=== PATIENT | male | born 1975 | race Caucasian/White ===

== ENCOUNTER 2017-10-29 03:50 | Emergency (ER) | payer BC ==
[~2017-10-29] VITALS: Ht 185.4 cm; Wt 79.4 kg
[~2017-10-29 03:50] MED LIST: LITH300C PO; MTF500T PO; NAPR-243 PO; TRM50T PO
[2017-10-29 04:19] LABS: BILIRUBIN,URINE NEGATIVE (NEGATIVE); CLARITY,URINE CLEAR; COLOR,URINE YELLOW; GLUCOSE, URINE (UA) NEGATIVE (NEGATIVE); KETONES,URINE NEGATIVE (NEGATIVE); LEUKOCYTE ESTERASE ,URINE 3+ (NEGATIVE); NITRITE,URINE NEGATIVE (NEGATIVE); PH,URINE 6 (5-9); PROTEIN,URINE 1+ (NEGATIVE); UROBILINOGEN,URINE NORMAL (NORMAL)
[2017-10-29 04:26] LABS: BACTERIA,URINE TRACE /HPF; SQUAMOUS EPITHELIAL CELL,UR RARE /HPF
--- NOTE | 2017-10-29 04:31 | ED GU-Male ---
General Stated Complaint: URINATION ISSUES Source: patient, other (gf) Exam Limitations: no limitations History of Present Illness Date Seen by Provider: October 29, 2017 Time Seen by Provider: 04:22 Initial Comments For the past 2 or 3 days the patient's having progressively more difficulty trying to urinate he says he takes 45 minutes to come feel like he completely empties his bladder. Puts up to the pencil thin stream. He says this started off and on for the past year and a half when he passed a kidney stone and he felt that there were some tearing and his urethra and it got caught in the penis. He was able to pass it despite following up with urology without any kind of intervention. He went to see nurse practitioner 2 days ago and was told he had a urinary tract infection and put on Levaquin and Flomax. He doesn't feel that this is helped at all. He has not followed up with urologist in the intervening year and a half. He is having no fevers chills nausea vomiting. He is not taking anything for pain and does not need anything right now. Allergies and Home Medications Allergies Coded Allergies: lisinopril (Verified Adverse Reaction, Mild, COUGH, 09/22/12) rosuvastatin calcium (Verified Adverse Reaction, Mild, LEG CRAMPS, 09/22/12 ) Home Medications Faxon Carbonate 300 Mg Capsule, 300 MG PO TID, (Reported) Metformin Hcl 500 Mg Tablet, 1 EACH PO BID WITH MEALS, (Reported) Naproxen 500 Mg Tablet, 1 EACH PO BID, (Reported) Tramadol Hcl 50 Mg Tab, 50 MG PO Q4H, (Reported) Patient Home Medication List Home Medication List Reviewed: Yes Review of Systems Constitutional: No chills, No diaphoresis, No fever Respiratory: No cough, No short of breath Cardiovascular: No chest pain, No edema Gastrointestinal: No abdominal pain, No constipation, No diarrhea, No nausea, No vomiting Genitourinary: denies discharge, denies dysuria Musculoskeletal: No back pain, No joint pain Skin: No pruritus, No rash Past Pmdtrim-Qclust-Muhxta Hx Patient Social History Alcohol Use: Denies Use Recreational Drug Use: No Smoking Status: Never a Smoker Recent Foreign Travel: No Contact w/Someone Who Travel: No Immunizations Up To Date Tetanus Booster (TDap): Less than 5yrs Past Medical History Reproductive Disorders: No Diabetes, Non-Insulin dep Bipolar Adverse Reaction/Blood Tranf: No Physical Exam Vital Signs Capillary Refill : General Appearance: WD/WN, no apparent distress HEENT: PERRL/EOMI, pharynx normal Neck: non-tender, full range of motion Cardiovascular: normal peripheral pulses, regular rate, rhythm Respiratory: chest non-tender, lungs clear, normal breath sounds, no respiratory distress, no accessory muscle use Gastrointestinal: normal bowel sounds, non tender, soft Back: normal inspection, no CVA tenderness Extremities: non-tender, normal capillary refill Neurologic/Psychiatric: alert, normal mood/affect, oriented x 3 Skin: normal color, warm/dry Progress/Results/Core Measures Suspected Sepsis SIRS Temperature: Pulse: Respiratory Rate: Blood Pressure / Mean: Results/Orders Lab Results Laboratory Tests Test 10/29/17 04:00 Range/Units Urine Color YELLOW Urine Clarity CLEAR Urine pH 6 5-9 Urine Specific [place] 1.020 1.016-1.022 Urine Protein 1+ H NEGATIVE Urine Glucose (UA) NEGATIVE NEGATIVE Urine Ketones NEGATIVE NEGATIVE Urine Nitrite NEGATIVE NEGATIVE Urine Bilirubin NEGATIVE NEGATIVE Urine Urobilinogen NORMAL NORMAL MG/DL Urine Leukocyte Esterase 3+ H NEGATIVE Urine RBC (Auto) NEGATIVE NEGATIVE Urine RBC NONE /HPF Urine WBC 5-10 H /HPF Urine Squamous Epithelial Cells RARE /HPF Urine Crystals NONE /LPF Urine Bacteria TRACE /HPF Urine Casts NONE /LPF Urine Mucus NEGATIVE /LPF Urine Culture Indicated YES My Orders Orders - HARVEY SMITH Ua Culture If Indicated (10/29/17 04:02) Urine Culture (10/29/17 04:00) Post Void Residual Assessment (10/29/17 04:27) Vital Signs/I&O Capillary Refill : Progress Note : Time: 05:01 Progress Note Postvoid residual shows about 60 cc. He was able put a little bit of urine out for a sample that has a few white blood cells may indicate UTI that he is being treated for versus urethritis. He does seem to have a urinary stricture based on his history. We'll need to do any kind of catheter at this time to relieve pressure. We'll get him a referral to urology. He has no constitutional, systemic symptoms. Continue the Flomax, Levaquin and follow up with urology. Departure Impression Primary Impression: Urethral stricture Qualified Codes: N35.9 - Urethral stricture, unspecified Additional Impression: Urethritis Disposition: 01 HOME, SELF-CARE Condition: Stable Departure-Patient Inst. Decision time for Depature: 05:03 Referrals: IVÁN SHAFFER DO (PCP/Family) Primary Care Physician JAYNA ELIZALDE MD Patient Instructions: Urethritis (DC) Add. Discharge Instructions: I encourage you to continue the antibiotic and Flomax. If you're unable to urinate completely can return to the ER for reevaluation. Otherwise you need to follow-up with urology. You can talk to Dr. Elizalde by calling his office at [phone] or if you prefer you can follow-up with Dr. Arreaga at [place], [place] by calling his office for an appointment at [phone]. Copy Copies To 1: JAYNA ELIZALDE MD, TITUS J October 29, 2017 04:31
[2017-10-29 05:31] VITALS: BP 125/85
== END 2017-10-29 05:31 | disposition home or self-care (01) ==
LOC: EDUNIT# 03:50 → ER 03:53
DX: N35.9 Urethral stricture, unspecified (principal); N34.2 Other urethritis; E11.9 Type 2 diabetes mellitus without complications; F31.9 Bipolar disorder, unspecified; Z88.8 Allergy status to other drugs, medicaments and biological substances; Z79.84 Long term (current) use of oral hypoglycemic drugs
CPT/HCPCS: 81000; 87088; 99283

== ENCOUNTER 2017-12-25 05:40 | Outpatient (CLI) | payer BC ==
[~2017-12-25] VITALS: Ht 185.4 cm; Wt 79.4 kg
[2017-12-25] MEDS ORDERED: FAMO-119 PO (13:22)
[2017-12-25] MEDS ORDERED: LITH300C PO (13:22)
[2017-12-25] MEDS ORDERED: METF10002 PO (13:22)
[2017-12-25] MEDS ORDERED: SIMV10TA PO (13:22)
[2017-12-25] MEDS ORDERED: LOSA25TA21 PO (13:22)
[2017-12-26] MEDS ORDERED: HYDR-3812 PO (09:27)
[2017-12-26] MEDS ORDERED: PHEN-640 PO (09:27)
== END 2017-12-25 13:31 | disposition home or self-care (01) ==
LOC: PREOP 05:40
PROVIDERS: ATTEND Urology
DX: Z01.818 Encounter for other preprocedural examination (principal)

== ENCOUNTER 2017-12-26 06:32 | Day surgery (SDC) | payer BC ==
[~2017-12-26] VITALS: Ht 185.4 cm; Wt 77.1 kg
[~2017-12-26 06:32] MED LIST changes: +FAMO-119 PO; +LOSA25TA21 PO; +METF10002 PO; +SIMV10TA PO
[2017-12-26] MEDS ORDERED: LACTATED RINGERS 1,000 ML IV PRN (06:41)
[2017-12-26 06:45] VITALS: BP 119/87
[2017-12-26] MEDS ORDERED: ceFAZolin INJECTION 1,000 MG in NS (IVPB) 50 ML IV ONE (06:45)
--- NOTE | 2017-12-26 07:04 | Progress Note-Post Operative ---
Post-Operative Progess Note Surgeon (s)/Chain Maker Loom Control (s) Surgeon JAYNA ELIZALDE MD Chain Maker Loom Control: N/A Pre-Operative Diagnosis SEVERE MEATAL STENOSIS Post-Operative Diagnosis SAME Procedure & Operative Findings Date of Procedure 12/26/17 Procedure Performed/Findings MEATOTOMY Anesthesia Type GENERAL Estimated Blood Loss Estimated blood loss (mL): NEGLIGIBLE Specimens/Packing Specimens Removed N/A Packing: N/A JAYNA ELIZALDE MD Dec 26, 2017 7:04 am
--- NOTE | 2017-12-26 07:04 | Progress Note-Pre Operative ---
Pre-Operative Progress Note H&P Reviewed The H&P was reviewed, patient examined and no changes noted. Date Seen by Provider: Dec 26, 2017 Time Seen by Provider: 07:03 Date H&P Reviewed: Dec 26, 2017 Time H&P Reviewed: 07:03 Pre-Operative Diagnosis: SEVERE MEATAL STENOSIS JAYNA ELIZALDE MD Dec 26, 2017 7:03 am
--- NOTE | 2017-12-26 07:06 | Discharge Inst-Urology ---
Discharge Inst-Urology Discharge Medications New, Converted, or Re-newed RX: RX on Chart Patient Instructions/Follow Up Plan Please make appointment to been seen in office in 4 weeks. No sexual activity Showers, no bath Neosporin + Pain ointment to meatus bid for 5 days Increase oral fluids for 48 hours and then as needed. Diet and Activity as tolerated. If questions or concerns contact your physician Or seek help at emergency department. JAYNA ELIZALDE MD Dec 26, 2017 7:06 am
[2017-12-26] MEDS ORDERED: NEOSPORIN + PAIN RELIEF CREAM 15 GM ONE (07:37)
[2017-12-26] MEDS ORDERED: DEXAMETHASONE 10 MG/ML (DECADRON) 1 ML VIAL ONE (07:41)
[2017-12-26] MEDS ORDERED: ONDANSETRON 4 MG/2 ML (SDV) Z0FRAN ONE (07:41)
[2017-12-26] MEDS ORDERED: LIDOCAINE PF 2% 5 ML (XYLOCAINE) VIAL ONE (07:41)
[2017-12-26] MEDS ORDERED: fentaNYL INJECTION 100 MCG/2 ML AMP ONE (07:41)
[2017-12-26] MEDS ORDERED: proPOfol 200 MG/20 ML (DIPRIVAN) VIAL IV ONE (07:41)
[2017-12-26] MEDS ORDERED: MIDAZOLAM 2 MG/2 ML (VERSED) VIAL ONE (07:42)
[2017-12-26] MEDS ORDERED: SEVOFLURANE (ULTANE) 15 ML INHAL SOLN ONE (08:19)
[2017-12-26] MEDS ORDERED: morphine INJ 10 MG/ML 1ML (SYR OR VIAL) IVP PRN (08:30)
[2017-12-26] MEDS ORDERED: ONDANSETRON 4 MG/2 ML (SDV) Z0FRAN IVP PRN (08:30)
[2017-12-26 09:05] VITALS: BP 125/90
[2017-12-26] MEDS ORDERED: PHEN-640 PO (09:27)
[2017-12-26] MEDS ORDERED: HYDR-3812 PO (09:27)
[2017-12-26 09:35] VITALS: BP 127/80
[2017-12-26 10:05] VITALS: BP 127/80
--- NOTE | 2017-12-26 11:24 | Anesthesia-General Post-Op ---
General Patient Condition Mental Status/LOC: Same as Preop Cardiovascular: Satisfactory Nausea/Vomiting: Absent Respiratory: Satisfactory Pain: Controlled Complications: Absent Post Op Complications Complications None Follow Up Care/Instructions Patient Instructions None needed. Anesthesia/Patient Condition Patient Condition Patient is doing well, no complaints, stable vital signs, no apparent adverse anesthesia problems. No complications reported per nursing. AMALIA LAN CRNA Dec 26, 2017 11:24
--- NOTE | 2017-12-26 12:51 | OPERATIVE REPORT ---
DATE OF SERVICE: 12/26/2017 PREOPERATIVE DIAGNOSIS: Severe meatal stenosis. POSTOPERATIVE DIAGNOSIS: Severe meatal stenosis. OPERATION PERFORMED: Meatotomy. SURGEON: Bubba Elizalde MD ANESTHESIA: General. COMPLICATIONS: None. DESCRIPTION OF PROCEDURE: Under satisfactory general anesthesia, the patient in supine position and the genitalia was prepped and draped in the usual sterile fashion. A ventral meatotomy was performed to widely open the meatus. I put several interrupted sutures of 4-0 chromic all around the meatus approximating the mucosa to hopefully prevent recurrence. I passed an 18-Hebrew catheter very easily inside the opening, applied Neosporin plus pain ointment. The patient tolerated the procedure and anesthesia well and was sent to recovery room in stable condition. Job ID: [id number] DocumentID: [id number] Dictated Date: 12/26/2017 08:22:26 Obstetrical Nurse Date: 12/26/2017 12:50:59 Dictated By: BUBBA ELIZALDE MD
== END 2017-12-26 10:10 | disposition home or self-care (01) ==
LOC: SDC 06:32
PROVIDERS: ATTEND Urology
DX: N35.9 Urethral stricture, unspecified (principal); E11.9 Type 2 diabetes mellitus without complications; I10 Essential (primary) hypertension; Z79.84 Long term (current) use of oral hypoglycemic drugs
CPT/HCPCS: 82962; 87081